=== PATIENT | male | born 1985 | race Asian ===

== ENCOUNTER 2018-06-17 19:43 | Inpatient (IN) | payer MEDICAID ==
[~2018-06-17] VITALS: Ht 175.3 cm; Wt 57.4 kg
[~2018-06-17 19:43] MED LIST: OLAN10TA3 PO
[2018-06-17] MEDS ORDERED: PNEUMOCOCCAL VACCINE POLYVALENT 0.5 ML VIAL [PPSV23] IM ONE (20:30)
[2018-06-17 20:37] VITALS: BP 123/65
[2018-06-18 02:28] VITALS: BP 118/69
[2018-06-18] MEDS: LORazepam 2 MG TABLET PO PRN ×2 (05:35→16:27)
[2018-06-18] MEDS: HALOPERIDOL 5 MG TABLET PO PRN ×2 (05:35→16:27)
[2018-06-18] MEDS ORDERED: BACITRACIN 28.4 GM OINTMENT TP PRN (06:45)
[2018-06-18] MEDS ORDERED: IBUPROFEN 600 MG TABLET PO PRN (06:45)
[2018-06-18] MEDS ORDERED: LOPERAMIDE HCL 2 MG CAPSULE PO PRN (06:45)
[2018-06-18] MEDS ORDERED: PETROLATUM,WHITE 71 GM JELLY TP PRN (06:45)
[2018-06-18] MEDS ORDERED: ACETAMINOPHEN 325 MG TABLET PO PRN (06:45)
[2018-06-18] MEDS ORDERED: CloNIDine HCL 0.1 MG TABLET PO PRN (06:45)
[2018-06-18] MEDS ORDERED: ALBUTEROL SULFATE HFA 90 MCG/PUFF 8 GM INHALER IH PRN (06:45)
[2018-06-18] MEDS ORDERED: MAGNESIUM HYDROXIDE SUSPENSION 30 ML UDCUP PO PRN (06:45)
[2018-06-18] MEDS ORDERED: MAG HYDROX/AL HYDROX/SIMETH ES 30 ML SUSPENSION UDCUP PO PRN (06:45)
[2018-06-18] MEDS ORDERED: ONDANSETRON HCL 4 MG TABLET PO PRN (06:45)
[2018-06-18] MEDS ORDERED: BENZOCAINE/MENTHOL LOZENGE MM PRN (06:45)
[2018-06-18 08:06] VITALS: BP 108/73
[2018-06-18 08:20] LABS: BASOPHILS % (AUTO) 0.4 % (0.0-2.0); EOSINOPHILS % (AUTO) 5.1 % (1.0-6.0); HEMATOCRIT 43.2 % (41-53); HEMOGLOBIN 14.3 g/dL (13.5-17.5); LYMPHOCYTES # (AUTO) 2.5 K/uL (1.0-4.8); LYMPHOCYTES % (AUTO) 32.8 % (22.0-44.0); MEAN CORPUSCULAR HEMOGLOBIN 27.8 pg (26.0-34.0); MEAN CORPUSCULAR HGB CONC 33.1 G/dL (31.0-37.0); MEAN CORPUSCULAR VOLUME 84 fL (80-100); MONOCYTES # (AUTO) 0.5 K/uL (0.1-1.0); MONOCYTES % (AUTO) 6.3 % (2.0-9.0); NEUTROPHILS # (AUTO) 4.2 K/uL (1.8-7.7); NEUTROPHILS % (AUTO) 55.4 % (40.0-70.0); PLATELET COUNT (AUTO) 236 K/uL (150-450); RED BLOOD CELL COUNT(AUTO) 5.14 MIL/uL (4.50-5.90); RED CELL DISTRIBUTION WIDTH 13.7 % (11.5-14.5)
[2018-06-18] MEDS: OMEPRAZOLE 20 MG CAPSULE PO SCH (08:38)
[2018-06-18] MEDS: DOCUSATE SODIUM 100 MG CAPSULE PO SCH (08:38)
[2018-06-18 08:40] LABS: HEMOGLOBIN A1C 5.7 % (4.5-6.2)
[2018-06-18 08:57] LABS: ALANINE AMINOTRANSFERASE 28 U/L (12-78); ALBUMIN 3.5 g/dL (3.4-5.0); ALKALINE PHOSPHATASE 70 U/L (46-116); ANION GAP 6 mmol/L (8-16); ASPARTATE AMINOTRANSFERASE 20 U/L (15-37); BILIRUBIN,TOTAL 0.1 mg/dL (0.1-1.0); CALCIUM, TOTAL 9.1 mg/dL (8.8-10.5); CARBON DIOXIDE 28 mmol/L (22-29); CHLORIDE 105 mmol/L (98-107); CHOL/HDL RATIO 4.3 (4.2-7.3); CHOLESTEROL 194 mg/dL (131-200); FREE T4 (FREE THYROXINE) 0.88 ng/dL (0.76-1.46); GLOMERULAR FILTR. RATE CALC > 60 mL/min (>60); GLUCOSE,RANDOM 94 mg/dL (70-110); HDL CHOLESTEROL 45 mg/dL (40-60); LDL CHOL (CALC.) 104 mg/dL (0-130); POTASSIUM 3.8 mmol/L (3.5-5.1); SODIUM SERUM 139 mmol/L (136-145); THYROID STIMULATING HORMONE 0.77 uIU/mL (0.36-3.74); TOTAL PROTEIN, SERUM 6.9 g/dL (6.4-8.2); TRIGLYCERIDES 223 mg/dL (15-150); UREA NITROGEN, BLOOD 13 mg/dL (7-18)
[2018-06-18 16:03] VITALS: BP 130/63
[2018-06-18] MEDS: DIVALPROEX SODIUM 500 MG ER TABLET PO SCH (16:26)
[2018-06-18] MEDS: OLANZapine 10 MG TABLET PO SCH (20:06)
[2018-06-18] MEDS ORDERED: SIMVASTATIN 10 MG TABLET PO SCH (21:00)
[2018-06-19 01:01] VITALS: BP 124/68
[2018-06-19 08:07] VITALS: BP 116/81
[2018-06-19] MEDS: DIVALPROEX SODIUM 500 MG ER TABLET PO SCH ×2 (08:47→16:29)
[2018-06-19] MEDS: OMEGA-3/DHA/EPA/FISH OIL 1,000 MG CAPSULE PO SCH (08:47)
[2018-06-19] MEDS: OMEPRAZOLE 20 MG CAPSULE PO SCH (08:47)
[2018-06-19] MEDS: DOCUSATE SODIUM 100 MG CAPSULE PO SCH (08:47)
[2018-06-19] MEDS ORDERED: KETOROLAC TROMETHAMINE 30 MG/ML VIAL IM ONE (13:15)
[2018-06-19 14:00] VITALS: BP 114/68
[2018-06-19 15:05] VITALS: BP 119/74
[2018-06-19 16:00] VITALS: BP 122/69
[2018-06-19] MEDS: HALOPERIDOL 5 MG TABLET PO PRN (16:28)
[2018-06-19] MEDS: LORazepam 2 MG TABLET PO PRN (16:28)
[2018-06-19] MEDS: ZOLPIDEM TARTRATE 10 MG TABLET PO PRN (20:16)
[2018-06-19] MEDS: OLANZapine 10 MG TABLET PO SCH (20:16)
[2018-06-20 06:36] VITALS: BP 114/68
[2018-06-20 08:08] VITALS: BP 131/76
[2018-06-20] MEDS: OMEPRAZOLE 20 MG CAPSULE PO SCH (08:36)
[2018-06-20] MEDS: OMEGA-3/DHA/EPA/FISH OIL 1,000 MG CAPSULE PO SCH (08:37)
[2018-06-20] MEDS: DOCUSATE SODIUM 100 MG CAPSULE PO SCH (08:37)
[2018-06-20] MEDS: DIVALPROEX SODIUM 500 MG ER TABLET PO SCH ×2 (08:37→16:40)
[2018-06-20] MEDS: LORazepam 2 MG TABLET PO PRN ×2 (09:52→16:40)
[2018-06-20] MEDS: HALOPERIDOL 5 MG TABLET PO PRN ×2 (09:52→16:40)
[2018-06-20 16:00] VITALS: BP 116/72
[2018-06-20] MEDS: ZOLPIDEM TARTRATE 10 MG TABLET PO PRN (20:07)
[2018-06-20] MEDS: OLANZapine 10 MG TABLET PO SCH (20:07)
[2018-06-21 06:07] VITALS: BP 105/81
[2018-06-21 08:06] VITALS: BP 110/78
[2018-06-21] MEDS: DOCUSATE SODIUM 100 MG CAPSULE PO SCH (08:22)
[2018-06-21] MEDS: OMEGA-3/DHA/EPA/FISH OIL 1,000 MG CAPSULE PO SCH (08:22)
[2018-06-21] MEDS: DIVALPROEX SODIUM 500 MG ER TABLET PO SCH ×2 (08:23→16:45)
[2018-06-21] MEDS: OMEPRAZOLE 20 MG CAPSULE PO SCH (08:23)
[2018-06-21 16:00] VITALS: BP 108/67
[2018-06-21] MEDS: LORazepam 2 MG TABLET PO PRN (16:45)
[2018-06-21] MEDS: HALOPERIDOL 5 MG TABLET PO PRN (16:45)
[2018-06-21] MEDS: ZOLPIDEM TARTRATE 10 MG TABLET PO PRN (20:49)
[2018-06-21] MEDS: OLANZapine 10 MG TABLET PO SCH (20:49)
[2018-06-22 00:04] VITALS: BP 149/111
[2018-06-22] MEDS: LORazepam 2 MG TABLET PO PRN ×2 (00:06→10:08)
[2018-06-22] MEDS: HALOPERIDOL 5 MG TABLET PO PRN (00:06)
[2018-06-22 01:07] VITALS: BP 118/79
[2018-06-22 08:05] VITALS: BP 140/84
[2018-06-22] MEDS: DOCUSATE SODIUM 100 MG CAPSULE PO SCH (08:17)
[2018-06-22] MEDS: OMEPRAZOLE 20 MG CAPSULE PO SCH (08:18)
[2018-06-22] MEDS: OMEGA-3/DHA/EPA/FISH OIL 1,000 MG CAPSULE PO SCH (08:18)
[2018-06-22] MEDS: DIVALPROEX SODIUM 500 MG ER TABLET PO SCH (08:18)
[2018-06-22] MEDS ORDERED: OLAN10TA3 PO (12:21)
[2018-06-22] MEDS ORDERED: DIVA500T52 PO (12:21)
== END 2018-06-22 13:25 | disposition home or self-care (01) | DRG 750 ==
LOC: B3A 20:03 → EDSTATUS 20:05
PROVIDERS: ADMIT Psychiatry & Neurology Psychiatry; ATTEND Psychiatry & Neurology Psychiatry
DX: F20.0 Paranoid schizophrenia (principal); G40.909 Epilepsy, unspecified, not intractable, without status epilepticus; R45.851 Suicidal ideations; F17.200 Nicotine dependence, unspecified, uncomplicated; G47.00 Insomnia, unspecified; J45.909 Unspecified asthma, uncomplicated; K59.00 Constipation, unspecified
CPT/HCPCS: 83036; 84439; 84443; 87081; 90686; J1885

== ENCOUNTER 2018-07-11 12:27 | Inpatient (IN) | payer MEDICAID, OTHER ==
[~2018-07-11] VITALS: Ht 175.3 cm; Wt 55.1 kg
[~2018-07-11 12:27] MED LIST changes: +DIVA500T52 PO
[2018-07-11] MEDS ORDERED: DIVALPROEX SODIUM 250 MG DR TABLET PO ONE (14:00)
[2018-07-11 14:04] LABS: BASOPHILS % (AUTO) 0.8 % (0.0-2.0); EOSINOPHILS % (AUTO) 3.8 % (1.0-6.0); HEMATOCRIT 43.7 % (41-53); LYMPHOCYTES # (AUTO) 2.1 K/uL (1.0-4.8); LYMPHOCYTES % (AUTO) 29.2 % (22.0-44.0); MEAN CORPUSCULAR HEMOGLOBIN 28.9 pg (26.0-34.0); MEAN CORPUSCULAR HGB CONC 34.2 G/dL (31.0-37.0); MEAN CORPUSCULAR VOLUME 84 fL (80-100); MONOCYTES # (AUTO) 0.5 K/uL (0.1-1.0); MONOCYTES % (AUTO) 6.1 % (2.0-9.0); NEUTROPHILS # (AUTO) 4.4 K/uL (1.8-7.7); NEUTROPHILS % (AUTO) 60.1 % (40.0-70.0); PLATELET COUNT (AUTO) 262 K/uL (150-450); RED BLOOD CELL COUNT(AUTO) 5.18 MIL/uL (4.50-5.90); RED CELL DISTRIBUTION WIDTH 13.4 % (11.5-14.5)
[2018-07-11 14:16] LABS: ANION GAP 8 mmol/L (8-16); CALCIUM, TOTAL 8.7 mg/dL (8.8-10.5); CARBON DIOXIDE 29 mmol/L (22-29); CHLORIDE 101 mmol/L (98-107); CREATININE 0.72 mg/dL (0.60-1.30); GLOMERULAR FILTR. RATE CALC > 60 mL/min (>60); GLUCOSE,RANDOM 99 mg/dL (70-110); POTASSIUM 3.7 mmol/L (3.5-5.1); SODIUM SERUM 138 mmol/L (136-145); UREA NITROGEN, BLOOD 11 mg/dL (7-18)
[2018-07-11 14:22] LABS: ALANINE AMINOTRANSFERASE 23 U/L (12-78); ALBUMIN 3.7 g/dL (3.4-5.0); ALKALINE PHOSPHATASE 70 U/L (46-116); ASPARTATE AMINOTRANSFERASE 16 U/L (15-37); BILIRUBIN,TOTAL 0.2 mg/dL (0.1-1.0); TOTAL PROTEIN, SERUM 7.4 g/dL (6.4-8.2)
[2018-07-11] MEDS ORDERED: HALOPERIDOL LACTATE 5 MG/ML VIAL IM ONE (16:45)
[2018-07-11] MEDS ORDERED: LORazepam 2 MG/ML VIAL IM ONE (16:45)
[2018-07-11] MEDS ORDERED: DiphenhydrAMINE HCL 50 MG/ML VIAL IM ONE (16:45)
[2018-07-11] MEDS ORDERED: ZOLPIDEM TARTRATE 10 MG TABLET PO PRN (17:30)
[2018-07-11] MEDS ORDERED: DOCUSATE SODIUM 100 MG CAPSULE PO PRN (20:15)
[2018-07-11] MEDS ORDERED: OMEPRAZOLE 20 MG CAPSULE PO PRN (20:15)
[2018-07-11] MEDS ORDERED: MAG HYDROX/AL HYDROX/SIMETH ES 30 ML SUSPENSION UDCUP PO PRN (20:15)
[2018-07-11] MEDS ORDERED: LOPERAMIDE HCL 2 MG CAPSULE PO PRN (20:15)
[2018-07-11] MEDS ORDERED: ACETAMINOPHEN 325 MG TABLET PO PRN (20:15)
[2018-07-11] MEDS ORDERED: IBUPROFEN 600 MG TABLET PO PRN (20:15)
[2018-07-11] MEDS ORDERED: BACITRACIN 28.4 GM OINTMENT TP PRN (20:15)
[2018-07-11] MEDS ORDERED: ALBUTEROL SULFATE HFA 90 MCG/PUFF 8 GM INHALER IH PRN (20:15)
[2018-07-11] MEDS ORDERED: PETROLATUM,WHITE 71 GM JELLY TP PRN (20:15)
[2018-07-11 20:35] VITALS: BP 124/71
[2018-07-12 07:29] LABS: CHOL/HDL RATIO 3.8 (4.2-7.3)
[2018-07-12 07:55] LABS: THYROID STIMULATING HORMONE 0.82 uIU/mL (0.36-3.74)
[2018-07-12 08:10] VITALS: BP 139/80
[2018-07-12] MEDS: DIVALPROEX SODIUM 500 MG ER TABLET PO SCH (16:44)
[2018-07-12 17:12] VITALS: BP 108/59
[2018-07-12] MEDS ORDERED: HALOPERIDOL LACTATE 5 MG/ML VIAL IM ONE (17:30)
[2018-07-12] MEDS ORDERED: DiphenhydrAMINE HCL 50 MG/ML VIAL IM ONE (17:30)
[2018-07-12] MEDS ORDERED: LORazepam 2 MG/ML VIAL IM ONE (17:30)
[2018-07-12] MEDS: OLANZapine 10 MG TABLET PO SCH (20:28)
[2018-07-13] MEDS: DIVALPROEX SODIUM 500 MG ER TABLET PO SCH ×2 (09:55→17:27)
[2018-07-13 11:23] VITALS: BP 123/100
[2018-07-13] MEDS: OLANZapine 10 MG TABLET PO SCH (20:35)
[2018-07-14] MEDS: DIVALPROEX SODIUM 500 MG ER TABLET PO SCH ×2 (10:27→16:58)
[2018-07-14 12:52] VITALS: BP 103/76
[2018-07-14 19:25] VITALS: BP 105/78
[2018-07-14] MEDS: OLANZapine 10 MG TABLET PO SCH (20:22)
[2018-07-15] MEDS: DIVALPROEX SODIUM 500 MG ER TABLET PO SCH ×2 (08:34→17:15)
[2018-07-15 09:35] VITALS: BP 134/79
[2018-07-15] MEDS: OLANZapine 10 MG TABLET PO SCH (21:17)
[2018-07-15 22:56] VITALS: BP 126/85
[2018-07-16 08:00] VITALS: BP 127/92
[2018-07-16] MEDS: DIVALPROEX SODIUM 500 MG ER TABLET PO SCH ×2 (09:56→17:01)
[2018-07-16 16:30] VITALS: BP 126/78
[2018-07-16] MEDS: OLANZapine 10 MG TABLET PO SCH (20:58)
[2018-07-17 08:00] VITALS: BP 153/76
[2018-07-17] MEDS: DIVALPROEX SODIUM 500 MG ER TABLET PO SCH ×2 (08:02→17:46)
[2018-07-17] MEDS: HALOPERIDOL 5 MG TABLET PO PRN (08:05)
[2018-07-17] MEDS: LORazepam 2 MG TABLET PO PRN (08:05)
[2018-07-17] MEDS ORDERED: LORazepam 2 MG/ML VIAL ONE (08:37)
[2018-07-17] MEDS ORDERED: HALOPERIDOL LACTATE 5 MG/ML VIAL ONE (08:37)
[2018-07-17] MEDS ORDERED: HALOPERIDOL LACTATE 5 MG/ML VIAL IM ONE (08:45)
[2018-07-17] MEDS ORDERED: LORazepam 2 MG/ML VIAL IM ONE (08:45)
[2018-07-17] MEDS: OLANZapine 10 MG TABLET PO SCH (20:25)
[2018-07-17 20:35] VITALS: BP 114/68
[2018-07-18] MEDS: DIVALPROEX SODIUM 500 MG ER TABLET PO SCH ×2 (08:48→16:46)
[2018-07-18] MEDS: HALOPERIDOL 5 MG TABLET PO PRN (08:50)
[2018-07-18] MEDS: LORazepam 2 MG TABLET PO PRN (08:51)
[2018-07-18 10:13] VITALS: BP 146/77
[2018-07-18 17:21] VITALS: BP 109/70
[2018-07-18] MEDS: OLANZapine 10 MG TABLET PO SCH (21:50)
[2018-07-19] MEDS: DIVALPROEX SODIUM 500 MG ER TABLET PO SCH (08:12)
[2018-07-19 08:15] VITALS: BP 132/75
[2018-07-19 10:19] VITALS: BP_SYST 132
== END 2018-07-19 15:05 | disposition home or self-care (01) | DRG 750 ==
LOC: EMS 12:28 → 3EI 17:58
PROVIDERS: ADMIT Psychiatry & Neurology Psychiatry; ATTEND Psychiatry & Neurology Psychiatry
DX: F20.9 Schizophrenia, unspecified (principal); R45.850 Homicidal ideations; Z78.1 Physical restraint status; G40.909 Epilepsy, unspecified, not intractable, without status epilepticus; F17.200 Nicotine dependence, unspecified, uncomplicated; G47.00 Insomnia, unspecified; J45.909 Unspecified asthma, uncomplicated; K59.00 Constipation, unspecified; F12.90 Cannabis use, unspecified, uncomplicated; F32.9 Major depressive disorder, single episode, unspecified; Z79.899 Other long term (current) drug therapy; Z71.6 Tobacco abuse counseling
CPT/HCPCS: 84436; 84443; 87081; 96372; G0480; J1200; J1630; J2060

== ENCOUNTER 2022-11-15 16:21 | Inpatient (IN) | payer MEDICAID ==
[~2022-11-15] VITALS: Ht 172.7 cm; Wt 59.0 kg
[~2022-11-15 16:21] MED LIST changes: -DIVA500T52 PO; +DIVA500T53 PO; -OLAN10TA3 PO; +OLAN10TA74 PO
[2022-11-15] MEDS ORDERED: HALOPERIDOL 5 MG TABLET PO PRN (18:30)
[2022-11-15] MEDS ORDERED: ZOLPIDEM TARTRATE 10 MG TABLET PO PRN (18:30)
[2022-11-15] MEDS ORDERED: INFLUENZA VIRUS VACCINE QVS 2022-23 (6MO+)/PF 60 MCG/0.5 ML SYRINGE IM. ONE (19:15)
[2022-11-15 20:02] VITALS: BP 118/71
[2022-11-15] MEDS ORDERED: PNEUMOCOCCAL VACCINE POLYVALENT 0.5 ML VIAL [PPSV23] IM. ONE (20:45)
[2022-11-16] MEDS ORDERED: MAGNESIUM HYDROXIDE SUSPENSION 30 ML UDCUP PO PRN (05:30)
[2022-11-16] MEDS ORDERED: LOPERAMIDE HCL 2 MG CAPSULE PO PRN (05:30)
[2022-11-16] MEDS ORDERED: ONDANSETRON HCL 4 MG TABLET PO PRN (05:30)
[2022-11-16] MEDS ORDERED: ALBUTEROL SULFATE HFA 90 MCG/PUFF 8 GM INHALER IH PRN (05:30)
[2022-11-16] MEDS ORDERED: BENZOCAINE/MENTHOL LOZENGE PO PRN (05:30)
[2022-11-16] MEDS ORDERED: ACETAMINOPHEN 325 MG TABLET PO PRN (05:30)
[2022-11-16] MEDS ORDERED: MAG HYDROX/AL HYDROX/SIMETH ES 30 ML SUSPENSION UDCUP PO PRN (05:30)
[2022-11-16] MEDS ORDERED: PETROLATUM,WHITE 28 GM JELLY TP PRN (05:30)
[2022-11-16] MEDS ORDERED: CloNIDine HCL 0.1 MG TABLET PO PRN (05:30)
[2022-11-16] MEDS ORDERED: BACITRACIN 28 GM OINTMENT TP PRN (05:30)
[2022-11-16] MEDS ORDERED: DOCUSATE SODIUM 100 MG CAPSULE PO PRN (05:30)
[2022-11-16] MEDS ORDERED: OMEPRAZOLE 20 MG CAPSULE PO PRN (05:30)
[2022-11-16] MEDS ORDERED: IBUPROFEN 600 MG TABLET PO PRN (05:30)
[2022-11-16 08:20] VITALS: BP 113/62
[2022-11-17 08:09] VITALS: BP 114/66
[2022-11-17] MEDS: LORazepam 2 MG TABLET PO PRN (10:22)
[2022-11-17] MEDS: RisperiDONE 3 MG TABLET PO SCH (16:15)
[2022-11-17 20:13] VITALS: BP 118/68
[2022-11-18 07:26] LABS: APPEARANCE,URINE HAZY (CLEAR); BILIRUBIN,URINE NEGATIVE (NEGATIVE); GLUCOSE, URINE (UA) NEGATIVE (NEGATIVE); KETONES,URINE NEGATIVE (NEGATIVE); LEUKOCYTE ESTERASE ,URINE NEGATIVE (NEGATIVE); NITRATE,URINE NEGATIVE (NEGATIVE); OCCULT BLOOD,URINE NEGATIVE (NEGATIVE); PROTEIN,URINE NEGATIVE (NEGATIVE); SPECIFIC GRAVITIY, URINE 1.024 (1.003-1.030); UROBILINOGEN,URINE <=1.0 mg/dL (<=1.0)
[2022-11-18 07:42] LABS: AMPHET/METH SCREEN,URINE NEGATIVE (NEGATIVE); BARBITURATE SCREEN, URINE NEGATIVE (NEGATIVE); BENZODIAZEPINES SCREEN,URINE NEGATIVE (NEGATIVE); CANNABINOID SCREEN,URINE POSITIVE (NEGATIVE); COCAINE SCREEN,URINE NEGATIVE (NEGATIVE); METHADONE SCREEN, URINE NEGATIVE (NEGATIVE); OPIATE SCREEN,URINE NEGATIVE (NEGATIVE); PHENCYCLIDINE SCREEN,URINE NEGATIVE (NEGATIVE)
[2022-11-18] MEDS: RisperiDONE 3 MG TABLET PO SCH ×2 (08:08→16:30)
[2022-11-18 08:21] VITALS: BP 128/68
[2022-11-18 20:25] VITALS: BP 127/78
[2022-11-19 08:05] VITALS: BP 135/61
[2022-11-19] MEDS: RisperiDONE 3 MG TABLET PO SCH ×2 (08:08→16:07)
[2022-11-19] MEDS: LORazepam 2 MG TABLET PO PRN (16:17)
[2022-11-19 20:46] VITALS: BP 120/75
[2022-11-20 08:17] VITALS: BP 122/67
[2022-11-20] MEDS: RisperiDONE 3 MG TABLET PO SCH ×2 (08:41→16:28)
[2022-11-20] MEDS ORDERED: RISP3TAB35 PO (16:02)
[2022-11-20] MEDS ORDERED: RISP3TAB63 PO (16:12)
== END 2022-11-20 17:56 | disposition home or self-care (01) | DRG 750 ==
LOC: B2S 18:43
PROVIDERS: ADMIT Psychiatry & Neurology Psychiatry; ATTEND Psychiatry & Neurology Psychiatry
PROC: 3E0234Z Introduction of Serum, Toxoid and Vaccine into Muscle, Percutaneous Approach (ICD-10-PCS; principal; 2022-11-15)
PROC: 3E02340 Introduction of Influenza Vaccine into Muscle, Percutaneous Approach (ICD-10-PCS; 2022-11-15)
DX: F20.9 Schizophrenia, unspecified (principal); G40.909 Epilepsy, unspecified, not intractable, without status epilepticus; R45.851 Suicidal ideations; F17.200 Nicotine dependence, unspecified, uncomplicated; F41.9 Anxiety disorder, unspecified; G47.00 Insomnia, unspecified; I10 Essential (primary) hypertension; J45.909 Unspecified asthma, uncomplicated; K59.00 Constipation, unspecified; Z23 Encounter for immunization; Z71.6 Tobacco abuse counseling
CPT/HCPCS: 80307; 81003; 90686; 90732

== ENCOUNTER 2023-07-30 14:13 | Inpatient (IN) | payer MEDICAID, OTHER ==
[~2023-07-30] VITALS: Ht 175.3 cm; Wt 63.5 kg
[~2023-07-30 14:13] MED LIST changes: -DIVA500T53 PO; -OLAN10TA74 PO; +RISP3TAB63 PO
[2023-07-30] MEDS ORDERED: LORazepam 2 MG TABLET PO PRN (15:30)
[2023-07-30] MEDS ORDERED: ZOLPIDEM TARTRATE 10 MG TABLET PO PRN (15:30)
[2023-07-30 15:52] LABS: BASOPHILS % (AUTO) 0.5 % (0.0-2.0); EOSINOPHILS % (AUTO) 5.1 % (1.0-6.0); HEMATOCRIT 43.3 % (41-53); HEMOGLOBIN 14.6 g/dL (13.5-17.5); LYMPHOCYTES # (AUTO) 2.6 K/uL (1.0-4.8); MEAN CORPUSCULAR HEMOGLOBIN 28.5 pg (26.0-34.0); MEAN CORPUSCULAR HGB CONC 33.8 G/dL (31.0-37.0); MEAN CORPUSCULAR VOLUME 84 fL (80-100); MONOCYTES # (AUTO) 0.5 K/uL (0.1-1.0); MONOCYTES % (AUTO) 6.2 % (2.0-9.0); NEUTROPHILS # (AUTO) 3.8 K/uL (1.8-7.7); NEUTROPHILS % (AUTO) 52.2 % (40.0-70.0); PLATELET COUNT (AUTO) 239 K/uL (150-450); RED BLOOD CELL COUNT(AUTO) 5.13 MIL/uL (4.50-5.90); RED CELL DISTRIBUTION WIDTH 14.3 % (11.5-14.5); WHITE BLOOD COUNT (AUTO) 7.2 K/uL (4.5-11.0)
[2023-07-30] MEDS ORDERED: BENZ2TAB71 PO (15:54)
[2023-07-30] MEDS ORDERED: DIVA500T53 PO (15:54)
[2023-07-30] MEDS ORDERED: IBUP-2070 PO (15:54)
[2023-07-30] MEDS ORDERED: OXYC30TA2 PO (15:54)
[2023-07-30 16:04] LABS: ANION GAP 5 mmol/L (8-16); CALCIUM, TOTAL 9.3 mg/dL (8.8-10.5); CARBON DIOXIDE 31 mmol/L (22-29); CHLORIDE 102 mmol/L (98-107); CREATININE 0.78 mg/dL (0.60-1.30); GLOMERULAR FILTR. RATE CALC > 60 mL/min (>60); GLUCOSE,RANDOM 93 mg/dL (70-110); SODIUM SERUM 138 mmol/L (136-145); UREA NITROGEN, BLOOD 10 mg/dL (7-18)
[2023-07-30 16:12] LABS: ALANINE AMINOTRANSFERASE 27 U/L (12-78); ALBUMIN 3.8 g/dL (3.4-5.0); ALKALINE PHOSPHATASE 82 U/L (46-116); ASPARTATE AMINOTRANSFERASE 13 U/L (15-37); BILIRUBIN,TOTAL 0.4 mg/dL (0.1-1.0); TOTAL PROTEIN, SERUM 7.9 g/dL (6.4-8.2)
[2023-07-30 16:13] LABS: ALCOHOL, BLOOD (SERUM) < 3 mg/dL (0-10)
[2023-07-30 17:14] LABS: COVID AG,FIA SOURCE NASAL SWAB
[2023-07-30 18:06] LABS: SARS-COV2 (COVID) ANTIGEN,FIA Negative (Negative)
[2023-07-30 18:07] LABS: APPEARANCE,URINE CLEAR (CLEAR); BILIRUBIN,URINE NEGATIVE (NEGATIVE); COLOR,URINE LIGHT YELLOW (YELLOW); GLUCOSE, URINE (UA) NEGATIVE (NEGATIVE); KETONES,URINE NEGATIVE (NEGATIVE); LEUKOCYTE ESTERASE ,URINE NEGATIVE (NEGATIVE); NITRATE,URINE NEGATIVE (NEGATIVE); OCCULT BLOOD,URINE NEGATIVE (NEGATIVE); PH,URINE 5.5 (5.0-8.0); PH,URINE DRUG SCREEN 5.5 (5.0-8.0); PROTEIN,URINE NEGATIVE (NEGATIVE); SPECIFIC GRAVITIY, URINE 1.018 (1.003-1.030); UROBILINOGEN,URINE <=1.0 mg/dL (<=1.0)
[2023-07-30 18:14] LABS: AMPHET/METH SCREEN,URINE NEGATIVE (NEGATIVE); BARBITURATE SCREEN, URINE NEGATIVE (NEGATIVE); BENZODIAZEPINES SCREEN,URINE NEGATIVE (NEGATIVE); CANNABINOID SCREEN,URINE NEGATIVE (NEGATIVE); COCAINE SCREEN,URINE NEGATIVE (NEGATIVE); METHADONE SCREEN, URINE NEGATIVE (NEGATIVE); OPIATE SCREEN,URINE NEGATIVE (NEGATIVE); PHENCYCLIDINE SCREEN,URINE NEGATIVE (NEGATIVE)
[2023-07-30 18:15] LABS: ALCOHOL, URINE DRUG SCREEN NEGATIVE (NEGATIVE)
[2023-07-30 20:38] VITALS: BP 107/69; PULSE 76; RESP 17; TEMP 97.6; O2SAT 98
[2023-07-31] MEDS ORDERED: INFLUENZA VIRUS VACCINE QVS 2023-24 (6MO+)/PF 60 MCG/0.5 ML SYRINGE IM. ONE (02:45)
[2023-07-31] MEDS ORDERED: BENZOCAINE/MENTHOL LOZENGE PO PRN (05:30)
[2023-07-31] MEDS ORDERED: MAGNESIUM HYDROXIDE SUSPENSION 30 ML UDCUP PO PRN (05:30)
[2023-07-31] MEDS ORDERED: BACITRACIN 28 GM OINTMENT TP PRN (05:30)
[2023-07-31] MEDS ORDERED: MAG HYDROX/ALUMINUM HYD/SIMETH ES 30 ML SUSPENSION UDCUP PO PRN (05:30)
[2023-07-31] MEDS ORDERED: CloNIDine HCL 0.1 MG TABLET PO PRN (05:30)
[2023-07-31] MEDS ORDERED: IBUPROFEN 600 MG TABLET PO PRN (05:30)
[2023-07-31] MEDS ORDERED: ACETAMINOPHEN 325 MG TABLET PO PRN (05:30)
[2023-07-31] MEDS ORDERED: LOPERAMIDE HCL 2 MG CAPSULE PO PRN (05:30)
[2023-07-31] MEDS ORDERED: ALBUTEROL SULFATE HFA 90 MCG/PUFF 8 GM INHALER IH PRN (05:30)
[2023-07-31] MEDS ORDERED: ONDANSETRON HCL 4 MG TABLET PO PRN (05:30)
[2023-07-31] MEDS ORDERED: OMEPRAZOLE 20 MG CAPSULE PO PRN (05:30)
[2023-07-31] MEDS ORDERED: DOCUSATE SODIUM 100 MG CAPSULE PO PRN (05:30)
[2023-07-31] MEDS ORDERED: PETROLATUM,WHITE 28 GM JELLY TP PRN (05:30)
[2023-07-31 08:15] VITALS: BP 102/76; PULSE 76; RESP 18; TEMP 98; O2SAT 98
[2023-07-31] MEDS: HALOPERIDOL 5 MG TABLET PO PRN (16:38)
[2023-07-31] MEDS: RisperiDONE 4 MG TABLET PO SCH (20:59)
[2023-08-01 02:30] VITALS: RESP 18; TEMP 97.9
[2023-08-01] MEDS: RisperiDONE 4 MG TABLET PO SCH ×2 (08:24→16:25)
[2023-08-01] MEDS: HALOPERIDOL 5 MG TABLET PO PRN (11:27)
[2023-08-01 13:50] VITALS: BP 111/62; PULSE 81; RESP 18; TEMP 97.9
[2023-08-01 22:01] VITALS: RESP 18; TEMP 97.8
[2023-08-02] MEDS: RisperiDONE 4 MG TABLET PO SCH ×2 (08:28→16:59)
[2023-08-02 09:06] VITALS: BP 114/74; PULSE 98; RESP 18; TEMP 97.5; O2SAT 98
[2023-08-02 11:11] VITALS: RESP 17
[2023-08-02 12:11] VITALS: RESP 16
[2023-08-02 21:02] VITALS: RESP 17; TEMP 98.1
[2023-08-03] MEDS: RisperiDONE 4 MG TABLET PO SCH (08:21)
[2023-08-03] MEDS ORDERED: RISP4TAB73 PO (08:28)
[2023-08-03 09:13] VITALS: BP 101/64; PULSE 78; RESP 16; TEMP 98.1; O2SAT 96
== END 2023-08-03 12:20 | disposition home or self-care (01) | DRG 750 ==
LOC: EMS 16:38 → B2S 16:39
PROVIDERS: ADMIT Psychiatry & Neurology Psychiatry; ATTEND Psychiatry & Neurology Psychiatry
DX: F20.9 Schizophrenia, unspecified (principal); G40.909 Epilepsy, unspecified, not intractable, without status epilepticus; F17.200 Nicotine dependence, unspecified, uncomplicated; F32.A Depression, unspecified; F41.9 Anxiety disorder, unspecified; G47.00 Insomnia, unspecified; J45.909 Unspecified asthma, uncomplicated; Z20.822 Contact with and (suspected) exposure to COVID-19; K59.00 Constipation, unspecified; I10 Essential (primary) hypertension; Z79.899 Other long term (current) drug therapy; Z90.49 Acquired absence of other specified parts of digestive tract
CPT/HCPCS: 80053; 80307; 81003; 85025; 90686; 99285; G0480